=== PATIENT | female | born 1965 | race Two or more races ===

== ENCOUNTER 2018-07-31 09:09 | Day surgery (SDC) | payer OTHER ==
[2018-07-31] VITALS (7 sets, daily range): BP systolic 102–132; BP diastolic 51–76
[~2018-07-31] VITALS: Ht 154.9 cm; Wt 78.9 kg
[~2018-07-31 09:09] MED LIST: ACID GONE ANTA355 M1 ORAL; Atropine Sulfate 0.4mg/ml inj IVP PRN; DiphenhydrAMINE 50mg/ml Inj IVP PRN; Midazolam 2mg/2ml Inj IVP PRN; OMEPRAZOLE40 M1 ORAL; REGULOID426 GM PO; fentaNYL 100 mcg/2 mL IV PRN
[2018-07-31] MEDS ORDERED: LR 1000ml ONE (10:30)
[2018-07-31] MEDS ORDERED: Propofol 200mg/20ml IV ONE (10:30)
[2018-07-31] MEDS ORDERED: Lidocaine 1% MPF 10mg/ml 5ml ONE (10:30)
--- NOTE | 2018-07-31 10:48 | Short Stay Surgery H&P ---
History of Present Illness History of Present Illness Chief Complaint Abdominal pains/GERDs/severe regurgitation and nausea. MAGI Angel is a 53 year old female who was admitted on for GERD/nausea/ abdominal pains Patient History Allergies: Coded Allergies: No Known Allergies (Unverified , 07/31/18) PAST MEDICAL HISTORY: (1) History of cholecystectomy (2) S/P shoulder surgery Medication History Scheduled Mag Carb/Al Hydrox/Alginic Ac* (Acid Gone Antacid Liquid*), 30 ML ORAL DAILY, ( Reported) Omeprazole (Omeprazole), 40 MG ORAL DAILY, (Reported) Psyllium Seed (Reguloid), 426 GM PO BID, (Reported) Review of Systems Cardiovascular: Reports: no symptoms Respiratory: Reports: no symptoms Skeletal: Reports: trauma Gastrointestinal: Reports: gastro esophageal reflux disease Genitourinary: Reports: no symptoms Neurologic: Reports: no symptoms Endocrine: Reports: no symptoms Hematologic: Reports: no symptoms Physical Exam Vital Signs Last Vital Signs Date Time Temp Pulse Resp B/P (MAP) Pulse Ox O2 Delivery O2 Flow Rate FiO2 07/31/18 10:04 Room Air 07/31/18 10:01 98.4 67 18 107/76 98 Labs Laboratory Tests Test 07/31/18 10:15 Urine HCG, Qualitative Negative (NEGATIVE) Skin: normal HENT: normal Heart: normal Lungs: normal Abdomen: abnormal Extremities: normal Genitourinary: normal Plan Plan of Care Upper GI endoscopy and biopsy Summary of Findings See the reports Attestation Are the patient's medical conditions optimized for surgery? Attestation Response: yes Dewayne Lopez MD Jul 31, 2018 10:48
--- NOTE | 2018-07-31 10:49 | Pre-Procedure Note/Attestation ---
Pre-Procedure Note/Attestation Complete Prior to Procedure Planned Procedure: left Procedure Narrative: Examiantion of the upper GI tract via endoscope Indications for Procedure Pre-Operative Diagnosis: R/O Peptic Ulcer/gastritis Attestation I attest that I discussed the nature of the procedure; its benefits; risks and complications; and alternatives (and the risks and benefits of such alternatives ), prior to the procedure, with the patient (or the patient's legal phone representative). I attest that, if there was a reasonable possibility of needing a blood transfusion, the patient (or the patient's legal phone representative) was given the [facility] standardized written summary, pursuant to the [place] Blood Safety Act ([place] Health and Safety Code # 1645, as amended). I attest that I re-evaluated the patient just prior to the surgery and that there has been no change in the patient's H&P, except as documented below: Dewayne Lopez MD Jul 31, 2018 10:49
--- NOTE | 2018-07-31 11:05 | Anethesia Preoperative Eval ---
Anesthesia Pre-op PMH/ROS General Date of Evaluation: Jul 31, 2018 Time of Evaluation: 10:33 Anesthesiologist: gris ASA Score: ASA 3 Mallampati Score Class I : Soft palate, uvula, fauces, pillars visible Class II: Soft palate, uvula, fauces visible Class III: Soft palate, base of uvula visible Class IV: Only hard plate visible Mallampati Classification: Class II Surgeon: lindy Diagnosis: gerd Surgical Procedure: egd Anesthesia History: none Social History: smoking - smoker Family History: no anesthesia problems Allergies: Coded Allergies: No Known Allergies (Unverified , 07/31/18) Medications: see eMAR Patient NPO?: Yes Past Medical History Cardiovascular: Reports: HTN Gastrointestinal/Genitourinary: Reports: GERD HEENT: Reports: cataract (L), cataract (R) Anesthesia Pre-op Phys. Exam Physician Exam Last Vital Signs Date Time Temp Pulse Resp B/P (MAP) Pulse Ox O2 Delivery O2 Flow Rate FiO2 07/31/18 10:04 Room Air 07/31/18 10:01 98.4 67 18 107/76 98 Constitutional: NAD Neurologic: CN 2-12 intact Cardiovascular: RRR Respiratory: CTA Gastrointestinal: S/NT/ND Airway Exam Mallampati Score: Class II MO: limited Neck: flexible TMD: 2fb ROM: limited Anesthesia Pre-op A/P Labs Urine Test Test 07/31/18 10:15 Urine HCG, Qualitative Negative (NEGATIVE) Risk Assessment & Plan Assessment: asa3 Plan: mac Status Change Before Surgery: No Pre-Antibiotics Drug: Rosa Isela Matute MD Jul 31, 2018 11:05
--- NOTE | 2018-07-31 11:25 | Immediate Post-Op Evaluation ---
Immediate Post-Op Evalulation Immediate Post-Op Evalulation Procedure: egd w/bx Date of Evaluation: Jul 31, 2018 Time of Evaluation: 11:25 IV Fluids: 200ml lr Blood Products: none Estimated Blood Loss: negligible Blood Pressure Systolic: 102 Blood Pressure Diastolic: 51 Pulse Rate: 62 Respiratory Rate: 18 O2 Sat by Pulse Oximetry: 100 Temperature (Fahrenheit): 97.1 Pain Score (1-10): 0 Nausea: No Vomiting: No Complications none Patient Status: awake, reacts, patent Hydration Status: adequate Drug: Rosa Isela Matute MD Jul 31, 2018 11:25
--- NOTE | 2018-07-31 11:27 | 48 Hour Post Anesthesia Eval ---
Post Anesthesia Evaluation Procedure: egd w/bx Date of Evaluation: Jul 31, 2018 Time of Evaluation: 11:27 Blood Pressure Systolic: 110 0: 52 Pulse Rate: 62 Respiratory Rate: 18 Temperature (Fahrenheit): 97.1 O2 Sat by Pulse Oximetry: 100 Airway: patent Nausea: No Vomiting: No Pain Intensity: 0 Hydration Status: adequate Cardiopulmonary Status: stable Mental Status/LOC: patient returned to baseline Post-Anesthesia Complications: none Follow-up care needed: N/A Rosa Isela Win MD Jul 31, 2018 11:27
--- NOTE | 2018-07-31 11:30 | Discharge Instructions ---
Discharge Instructions Discharge Instructions Follow up with: Visit the doctor after two weeks in office, call first For Congestive Heart Failure Reminder Report to your physician any weight gain of 5 pounds or more in one week. Dewayne Lopez MD Jul 31, 2018 11:30
--- NOTE | 2018-07-31 18:02 | Operative Note - Dictated ---
DATE OF OPERATION: 07/31/2018 SURGEON: Dewayne Lopez M.D. PROCEDURE: Esophagogastroduodenoscopy with biopsy. PREOPERATIVE DIAGNOSES: Abdominal pain, nausea. POSTOPERATIVE DIAGNOSIS: Mild generalized gastritis. Biopsy was taken from the gastric body. MEDICATION USED: Per Dr. Mackey, anesthesiologist. INSTRUMENT: GIF Olympus video upper GI endoscope. DESCRIPTION OF PROCEDURE: The patient after arriving in the endoscopy unit, was told about risks and benefits of the procedure, which she accepted and signed informed consent. She was then put in the left lateral decubitus position. After adequate IV sedation, the scope was gently passed through the cricopharyngeal area, was lodged into the upper esophagus, and gradually advanced towards gastroesophageal junction. The entire length of the esophagus looked normal. No evidence of pathology such as inflammatory process, ulceration, stricture, polyps, tumors, etc. was found. At this time, the scope was advanced towards GE junction, which looked normal. No evidence of Trujillo's or hiatal hernia noted. The scope was then guided into the stomach. Gastric cavity was distended with insufflation of air and gradually the areas of the fundus and the body and the antrum were examined, which revealed evidence of mild inflammatory process and congestion of gastric mucosa consistent with mild gastritis. There was no polyps, tumors, bleeding site etc. One random biopsy from gastric body obtained. Subsequently, the scope was passed through the antrum, from there into pyloric channel. First and second portions of duodenum were also found to be completely normal. At this time, the scope was pulled out and the procedure was terminated. The patient tolerated the procedure well, left the endoscopy room in a good condition. Dewayne Lopez M.D. DR: GRADY JOB#: [id number] CC:
--- NOTE | 2018-07-31 20:01 | Pre-op HX & Phy Repo 2 SIG ---
DATE OF ADMISSION: 07/31/2018 \BOOTH\NOTATION: REGARDING PREOPERATIVE EXAMINATION BILLING This patient had to be medically examined before undergoing the procedure of endoscopy, which required anesthesia for medical clearance and therefore, this report is entitled for compensation accordingly as planned for the time spent. 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 Subsequently, she had injuries over different parts of the body, which included mostly right side of the body, right knee as well as right shoulder, and lower back area. She has received multiple medications for the treatment of bodily injury for a long period of time including nonsteroidal anti-inflammatory agents and analgesics. At this time today, the patient reports to me that she still continues to have symptoms of epigastric pain and discomfort, for which she was basically evaluated a couple months ago in our office. She continues to have heartburn and periods of nausea. Occasionally, the pains are located mostly over the lower part of the chest that she states. Of other importance is that she has been going to the bathroom quite frequently with loose and diarrheal stools, the etiology and reason for which is she was not clear. She does have moderate amount of heartburn consistent with gastroesophageal acid reflux. Initially, GI, however, denies having any problem with swallowing such as dysphagia, odynophagia, neither she has had any symptoms of GI bleeding such as hematemesis, melena, or hematochezia, etc. She also reports to me that she has never been evaluated and worked up for these conditions of severe epigastric pain, heartburn, and diarrheal stools in the past that occurred subsequent to her work injury and were not present before being injured at job site as reported. PAST MEDICAL HISTORY: Basically not significant. She denies high blood pressure or arthritis, etc. PAST SURGICAL HISTORY: She has had history of cholecystectomy and left shoulder surgery, which she relates to the bodily injury at work. ALLERGIES: None significant. FAMILY HISTORY: None significant. HABITS: She denies drinking alcohol or smoking cigarettes. MEDICATIONS: Currently, omeprazole and fiber. REVIEW OF SYSTEMS: Basically, history of present illness and she complains of pain over the right knee area, the right elbow, and lower back, as mentioned it is related to work accident. She denies any chest pain or palpitations , etc. She also reports that she has been quite anxious and depressed as well. PHYSICAL EXAMINATION: GENERAL: At this time reveals alert and oriented, but obese female, does not seem to be in any acute distress. VITAL SIGNS: Blood pressure 107/76, pulse rate 67 per minute, temperature 98.4, respiratory rate 16 per minute, and oxygen saturation 97%. HEENT: Normocephalic. Pupils are equal in size and reactive to light and accommodation. No visible jaundice. Buccal cavity, tongue midline, well hydrated. No ulcers. NECK: Supple. No JVD, thyromegaly, or adenopathy. CHEST: Clear to auscultation and percussion. No rales or rhonchi. HEART: S1, S2 normal. Regular rhythm. No gallops or murmur. ABDOMEN: Obese and quite tender in all over parts of the abdomen, particularly in the upper epigastric area. There is no hepatosplenomegaly. No palpable mass. EXTREMITIES: Unremarkable. PRELIMINARY PREOPERATIVE IMPRESSION: 1. Epigastric pain consistent with gastroesophageal acid reflux, rule out NSAID-induced gastropathy, peptic ulcer disease, and gastritis. 2. History of nausea of uncertain etiology, rule out acid-induced gastritis versus intragastric lesions such as peptic ulcer disease. 3. History of generalized abdominal pain and diarrhea of uncertain etiology, rule out underlying irritable bowel syndrome versus colitis. 4. Obesity. 5. History of bodily injury, work-related. RECOMMENDATIONS: The applicant at this time seems to be quite stable to undergo the procedure of upper GI endoscopy, for which she has been scheduled. I spoke with her and she understands the risks and benefits and will sign the consent. Said Lon Lopez DR: MORENO JOB#: [id number] CC:
== END 2018-07-31 12:20 | disposition home or self-care (01) ==
LOC: GAS 09:09
DX: K29.70 Gastritis, unspecified, without bleeding (principal); Z90.49 Acquired absence of other specified parts of digestive tract; K21.9 Gastro-esophageal reflux disease without esophagitis; E66.9 Obesity, unspecified; F17.200 Nicotine dependence, unspecified, uncomplicated; I10 Essential (primary) hypertension
CPT/HCPCS: 43239; 81025; J2704; 94003; 94150

== ENCOUNTER 2019-04-30 07:28 | Day surgery (SDC) | payer OTHER ==
[~2019-04-30] VITALS: Ht 154.9 cm; Wt 76.2 kg
[2019-04-30] VITALS (7 sets, daily range): BP systolic 106–148; BP diastolic 60–86
--- NOTE | 2019-04-30 07:16 | Anethesia Preoperative Eval ---
Anesthesia Pre-op PMH/ROS General Date of Evaluation: Apr 30, 2019 Time of Evaluation: 07:13 Anesthesiologist: gris ASA Score: ASA 3 Mallampati Score Class I : Soft palate, uvula, fauces, pillars visible Class II: Soft palate, uvula, fauces visible Class III: Soft palate, base of uvula visible Class IV: Only hard plate visible Mallampati Classification: Class II Surgeon: lindy Diagnosis: gerd Surgical Procedure: colonoscopy Anesthesia History: none Family History: no anesthesia problems Allergies: Coded Allergies: No Known Allergies (Unverified , 07/31/18) Medications: see eMAR Patient NPO?: Yes Past Medical History Cardiovascular: Reports: HTN Gastrointestinal/Genitourinary: Reports: GERD Neurologic/Psychiatric: Reports: depression/anxiety Other: obesity PSxH Narrative: cholecystectomy, right shoulder sx, lap cholecystectomy, eye sx Anesthesia Pre-op Phys. Exam Physician Exam Last Vital Signs Date Time Temp Pulse Resp B/P (MAP) Pulse Ox O2 Delivery O2 Flow Rate FiO2 04/30/19 08:21 Room Air 04/30/19 08:11 98.2 71 20 148/86 100 Constitutional: NAD Neurologic: CN 2-12 intact Cardiovascular: RRR Respiratory: CTA Gastrointestinal: S/NT/ND Airway Exam Mallampati Score: Class II MO: limited Neck: flexible TMD: 2fb ROM: limited Anesthesia Pre-op A/P Risk Assessment & Plan Assessment: asa3 Plan: mac Status Change Before Surgery: No Pre-Antibiotics Drug: Rosa Isela Matute MD Apr 30, 2019 07:16
[~2019-04-30 07:28] MED LIST changes: +Atropine Inj 1mg/10ml Syr IV PRN; -Atropine Sulfate 0.4mg/ml inj IVP PRN; +LR 1000ml 1,000 ML IVLG SCH
--- NOTE | 2019-04-30 07:36 | Short Stay Surgery H&P ---
History of Present Illness History of Present Illness Chief Complaint Abdominal pains, diarrhea HPI Lorena Angel is a 53 year old female who was admitted on for abdominal pains/diarrhea Patient History Allergies: Coded Allergies: No Known Allergies (Unverified , 07/31/18) PAST MEDICAL HISTORY: (1) History of laparoscopic cholecystectomy (2) History of shoulder surgery Medication History Scheduled Mag Carb/Al Hydrox/Alginic Ac* (Acid Gone Antacid Liquid*), 30 ML ORAL DAILY, ( Reported) Omeprazole (Omeprazole), 40 MG ORAL DAILY, (Reported) Psyllium Seed (Reguloid), 426 GM PO BID, (Reported) Review of Systems Cardiovascular: Reports: no symptoms Respiratory: Reports: no symptoms Skeletal: Reports: trauma Gastrointestinal: Reports: see HPI Neurologic: Reports: no symptoms Endocrine: Reports: no symptoms Hematologic: Reports: no symptoms Physical Exam Skin: normal HENT: normal Heart: normal Lungs: normal Abdomen: abnormal Extremities: normal Genitourinary: normal Plan Plan of Care Total colonoscopy with biopsies Preop Interventions None. Summary of Findings See the reports Attestation Are the patient's medical conditions optimized for surgery? Attestation Response: yes Dewayne Lopez MD Apr 30, 2019 07:36
--- NOTE | 2019-04-30 07:37 | Pre-Procedure Note/Attestation ---
Pre-Procedure Note/Attestation Complete Prior to Procedure Planned Procedure: left Procedure Narrative: Examination of the total colon via endoscopy with obtaining biopsies. Indications for Procedure Pre-Operative Diagnosis: R/O Colitis. Attestation I attest that I discussed the nature of the procedure; its benefits; risks and complications; and alternatives (and the risks and benefits of such alternatives ), prior to the procedure, with the patient (or the patient's legal lead generation representative). I attest that, if there was a reasonable possibility of needing a blood transfusion, the patient (or the patient's legal lead generation representative) was given the [facility] standardized written summary, pursuant to the [place] Blood Safety Act ([place] Health and Safety Code # 1645, as amended). I attest that I re-evaluated the patient just prior to the surgery and that there has been no change in the patient's H&P, except as documented below: Dewayne Lopez MD Apr 30, 2019 07:37
[2019-04-30] MEDS ORDERED: Lidocaine 1% MPF 10mg/ml 5ml ONE (08:00)
[2019-04-30] MEDS ORDERED: LR 1000ml 1,000 ML IVLG SCH (08:00)
[2019-04-30] MEDS ORDERED: Propofol 200mg/20ml IV ONE (08:00)
[2019-04-30] MEDS ORDERED: LR 1000ml ONE (08:00)
[2019-04-30] MEDS ORDERED: ACETAMINOPHEN-1 EAC1 ORAL (08:29)
--- NOTE | 2019-04-30 08:53 | Endoscopy Procedure Note ---
Endoscopy Procedure Note General Indication for Procedure: Abdominal pains and diarrhea Procedures Performed: colonoscopy - Completely normal total colonoscopy, biopsies obtained from different parts of the colon per random. Specimen: yes Pt Tolerated Procedure Well: Yes Estimated Blood Loss: none Anesthesia Anesthesiologist: Dr. Wni Anesthesia: moderate sedation Medications Medication Given: see anesthesia record Inserted Devices Implant(s) used?: No Quality Quality of Bowel Preparation: Excellent Did scope reach the cecum?: Yes Was there any complications?: No GI Core Measures 50 yrs or older w/o bx or poly: Yes 10yrs. F/U recommended: Yes 18 years or older w/prev. colo: No <3yrs. since last colonoscopy: No Med reason:<3 yrs.: System Reason:<3 yrs.: Dewayne Lopez MD Apr 30, 2019 08:53
--- NOTE | 2019-04-30 08:55 | Discharge Instructions ---
Discharge Instructions Discharge Instructions Follow up with: Follow up with Dr. Martinez only , no need to see Dr. Lopez For Congestive Heart Failure Reminder Report to your physician any weight gain of 5 pounds or more in one week. Dewayne Lopez MD Apr 30, 2019 08:55
--- NOTE | 2019-04-30 09:16 | Immediate Post-Op Evaluation ---
Immediate Post-Op Evalulation Immediate Post-Op Evalulation Procedure: colonoscopy w/bx Date of Evaluation: Apr 30, 2019 Time of Evaluation: 09:12 IV Fluids: 300ml lr Blood Products: none Estimated Blood Loss: negligible Blood Pressure Systolic: 106 Blood Pressure Diastolic: 72 Pulse Rate: 60 Respiratory Rate: 18 O2 Sat by Pulse Oximetry: 100 Temperature (Fahrenheit): 97.2 Pain Score (1-10): 0 Nausea: No Vomiting: No Complications none Patient Status: awake, reacts, patent Hydration Status: adequate Drug: Rosa Isela Matute MD Apr 30, 2019 09:16
--- NOTE | 2019-04-30 09:23 | 48 Hour Post Anesthesia Eval ---
Post Anesthesia Evaluation Procedure: colonoscopy w/bx Date of Evaluation: Apr 30, 2019 Time of Evaluation: 09:14 Blood Pressure Systolic: 114 0: 66 Pulse Rate: 56 Respiratory Rate: 18 Temperature (Fahrenheit): 97.2 O2 Sat by Pulse Oximetry: 100 Airway: patent Nausea: No Vomiting: No Pain Intensity: 0 Hydration Status: adequate Cardiopulmonary Status: stable Mental Status/LOC: patient returned to baseline Post-Anesthesia Complications: none Follow-up care needed: N/A Rosa Isela Win MD Apr 30, 2019 09:23
--- NOTE | 2019-04-30 10:30 | Pre-op HX & Phy Repo 2 SIG ---
DATE OF ADMISSION: 04/30/2019 HISTORY OF PRESENT ILLNESS: The patient is a 53-year-old non-Saudi Arabian speaking female who is being seen prior to undergoing the procedure of total colonoscopy for which she has been scheduled to receive for evaluation of abdominal pain and diarrhea that she has been complaining subsequent to her work injury. The patient tells me now that she is having basically generalized pain which are located in two areas of her abdomen, one in the epigastric area and the other one generalized mostly over the right and left quadrants that occur intermittently. She also suffers from periods of diarrhea as she does have two to four bowel movement on a daily basis. The patient was seen some time ago in my office earlier and noted to have symptoms of upper GI tract, which was basically severe epigastric pain and heartburn. She underwent an upper GI endoscopy, which basically was not that much significant. Subsequently, the patient has continued to experience pain over the abdominal area along with the diarrheal stools I mentioned. She has been receiving omeprazole and anti-acid at times and she is also taking fiber medication to help with her abdominal pain which is not constantly always possible. 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 She reported to me that she got injured at job site as such which injuries occurred over her neck and different part of the lower back with symptoms of possible cervical or lumbar radiculopathy. She was then under care of different physicians including orthopedist and pain management. Also, she was complaining of having pain over her right knee and both hands. She received multiple medications including the nonsteroidal anti-inflammatory agents and strong analgesics. She reports that after taking all these medications, she started to gradually experience symptoms of pain over the epigastric area, which was mostly related to the side effects of NSAID that she took couple of years. However, gradually she became so anxious and depressed and a lot of psychological problems occurred after her injury at work which affected her in a tremendous way and she subsequently started gradually to develop symptoms of abdominal pain with diarrhea as I mentioned. Initially my diagnosis, when I saw the patient, was gastroesophageal acid reflux and underlying development of irritable bowel syndrome, which both of them were not present before the patient being injured at job site. Now, the patient is being seen to undergo the procedure of colonoscopic examination today to make sure that the patient does not have any major organic condition of the colon such as colitis, etc. PAST MEDICAL HISTORY: The applicant denies having had any major history such as high blood pressure, cholesterol, arthritis, etc. PAST SURGICAL HISTORY: The patient has had two surgeries, one of them of the right shoulder and the other one cholecystectomy in the past. ALLERGIES: Nonsignificant. HABITS: The applicant denies drinking alcohol or smoking cigarettes. FAMILY HISTORY: She has diabetes from both side parents, but she has two healthy children. She reports that hypertension and diabetes runs in the family. MEDICATIONS: Current medications are omeprazole and Metamucil. REVIEW OF SYSTEMS: Basically history of present illness. As mentioned, the patient has been experiencing pain over the right knee and the right shoulder, lower back and right wrist area at this point. But she denies having any chest pain, shortness of breath, asthma symptoms, cough, etc. No urinary symptoms except for occasional burning sensations. PHYSICAL EXAMINATION: GENERAL: At this time reveals alert and well-oriented very pleasant female, who does not seem to be in any acute distress. She looks well developed and well nourished and obese. VITAL SIGNS: Blood pressure 148/86, pulse rate 71 per minute, respiratory rate 20 per minute, oxygen saturation 100%, and temperature 98.2. HEENT: Normocephalic. Pupils equal in size and reactive to light and accommodation. No visible jaundice. Buccal cavity, tongue midline, well hydrated. No ulcers. NECK: Supple. No jugular venous distention or thyromegaly. No masses. CHEST: Clear to auscultation and percussion. No rales or rhonchi. HEART: S1, S2 normal. Regular rhythm. No gallops or murmur. ABDOMEN: Soft but obese. There are areas of tenderness all over the abdomen particularly upper and lower part and in both quadrants on the left and the right lower quadrant area. There was no palpable mass. No percussion tenderness. No organomegaly. EXTREMITIES: Within normal limits. CENTRAL NERVOUS SYSTEM: Grossly normal. SKIN AND LYMPHATICS: Nonsignificant. PRELIMINARY PREOPERATIVE IMPRESSION: 1. Abdominal pain and diarrhea of questionable etiology, rule out underlying irritable bowel syndrome versus NSAID-induced colitis, granulomatous colitis, microcytic colitis, etc. Rule out Crohn disease, doubt. 2. History of gastroesophageal acid reflux aggravated by side effects of medication used for the treatment of bodily injury. 3. Significant anxiety and depression. RECOMMENDATIONS: The applicant at this time seems to be quite stable to undergo the procedure of total colonoscopy as she is scheduled for and she will sign the consent form as such. Said Lon Lopez DR: SHERIF JOB#: [id number] CC:
--- NOTE | 2019-04-30 13:15 | Operative Note - Dictated ---
DATE OF OPERATION: 04/30/2019 SURGEON: Dewayne Lopez M.D. PROCEDURE: Esophagogastroduodenoscopy with biopsy. PREOPERATIVE DIAGNOSIS: Abdominal pain, diarrhea. POSTOPERATIVE DIAGNOSIS: Completely normal total colonoscopy and biopsies were taken per random from different parts of the colon, terminal ileum could not be penetrated. MEDICATION USED: Per Dr. Mackey, anesthesiologist. INSTRUMENT: GIF Olympus video colonoscope. DESCRIPTION OF PROCEDURE: The patient after arriving in the endoscopy unit, was told about risks and benefits of the procedure, which she accepted and signed informed consent. She was then put on the left lateral decubitus position. After adequate IV sedation, the scope was gently passed through the anal area, which revealed completely findings, which were within normal limits. No major hemorrhoids, fissures, ulcers, or proctitis was noted. After passing the scope through normal colon, the scope was gradually passed into rectosigmoid area and advanced into the left colon, which was quite redundant. Significant amount of time was spent to be able to pass through this area with straightening the colon and finally scope reached to the splenic flexure. From there, it was guided into the transverse colon, hepatic flexure, and finally was advanced towards the base of the cecum and the right colon. All these areas remained to be completely normal. No evidence of any abnormality such as inflammatory process, ulceration, stricture, polyps, tumors, etc. was found. The colonic mucosa looked completely normal. The colon cleanup was excellent and adequate. Upon reaching to the base of the cecum, significant amount of time was spent to be able to pass through into the terminal area, which was not possible at this point. Therefore, within approximately 6 to 7 minutes, the scope was gradually pulled out and reexamination of the colon did not reveal any other abnormalities. The patient tolerated the procedure well and left the endoscopy room in a good condition. Dewayne Lopez M.D. DR: JELANI JOB#: [id number] CC:
== END 2019-04-30 10:05 | disposition home or self-care (01) ==
LOC: GAS 07:28
DX: R10.9 Unspecified abdominal pain (principal); R19.7 Diarrhea, unspecified; F32.9 Major depressive disorder, single episode, unspecified; F41.9 Anxiety disorder, unspecified; K21.9 Gastro-esophageal reflux disease without esophagitis; Z90.49 Acquired absence of other specified parts of digestive tract; I10 Essential (primary) hypertension; E66.9 Obesity, unspecified; Z68.31 Body mass index [BMI] 31.0-31.9, adult
CPT/HCPCS: 45380; J2704; J7120; 94003; 94150